=== PATIENT | female | born 1955 | race Caucasian/White ===

== ENCOUNTER → 2020-12-27 08:09 | Outpatient (CLI) | payer MEDICARE, SELFPAY ==
--- NOTE | ~2020-12-27 | CT_ITS ---
EXAMINATION: CT brain & sinus wo con DATE: 12/27/2020 08:48 INDICATION: Dizziness and giddiness. TECHNIQUE: Computed tomography (CT) of the head was performed without intravenous contrast. CT of the paranasal sinuses was performed without intravenous contrast. The mA was adjusted according to patie nt size. Iterative reconstruction technique was employed. The dose-length product was 674.51 mGy-cm. COMPARISON: None. FINDINGS: Head CT: There is no intracranial hemorrhage, acute infarction, or abnormal intracranial mass lesion. The vent ricles are normal in size. The orbits are normal. The mastoid air cells are normal. Sinuses CT: The frontal sinuses are small. There is mild mucosal thickening in the bilateral ethmoid sinuses. The sphenoid and maxillary sinuses are clear. The ostiomeatal units are patent. There is rightward devia tion of the nasal septum. IMPRESSION: 1. Normal brain. 2. Mild mucosal thickening in the ethmoid sinuses. 3. Rightward deviation of the the nasal septum. Reviewed, dictated and finalized at location A. ESS AND WELLNESS COORDINATOR
== END ==
PROVIDERS: PCP Family Medicine; Visit Provider Family Medicine
DX: R42 Dizziness and giddiness (principal); J32.4 Chronic pansinusitis
CPT/HCPCS: 70450; 70486

== ENCOUNTER 2021-04-30 16:57 | Emergency (ER) | payer MEDICARE, SELFPAY ==
[2021-04-30 18:01] VITALS: BP 145/82; PULSE 84; RESP 16; TEMP 36.4; O2SAT 99
--- NOTE | 2021-04-30 18:13 | ED.SKABFB ---
HPI - Skin/Abscess/Foreign Bdy General Chief complaint: Skin/Abscess/Foreign Body Stated complaint: POISON EZIO Time Seen by Provider: 04/30/21 18:14 Source: patient Limitations: no limitations History of Present Illness HPI narrative: Deirdre Torres is a 65 yo female with poison ezio that is coming here for IM Solu-Medrol for same because she is having left knee replacement on Wednesday. Her surgeon told her she needed to have IM medication for the poison ezio because she is not to be taking oral meds prior to surgery. Orthopedic surgeon is Dr Shine Larkin at [facility] Related Data Allergies Allergy/AdvReac Type Severity Reaction Status Date / Time oxycodone [From OxyContin] Allergy Mild nausea and Verified 03/31/21 10:00 vomiting morphine Allergy Unknown Nausea and Verified 03/31/21 10:00 Vomiting Review of Systems Review of Systems: Narrative: CONSTITUTIONAL: Denies fever, chills, sweats. EYES: Denies visual changes, redness, discharge. ENT: Denies rhinorrhea, congestion, sore throat, otalgia. CARDIOVASCULAR: Denies chest pain, palpitations, edema. RESPIRATORY: Denies dyspnea, wheezing, cough GASTROINTESTINAL: Denies abdominal pain, nausea, vomiting, diarrhea. GENITOURINARY: Denies dysuria, hematuria, abnormal discharge SKIN: Rash on bilateral arms and back NEUROLOGIC: Denies numbness, or focal weakness. PSYCHIATRIC: Denies anxiety or depression. [facility] Past Medical History Medical History Hyperlipidemia SVT (supraventricular tachycardia) Surgical History Surgical History H/O cervical discectomy C6-7 History of right knee joint replacement Family History Family History Father Diabetes mellitus Hypertension Sibling Hypertension Mother Lung cancer Other Brain cancer Social History Social History Social History: Second hand tobacco smoke exposure: No Alcohol intake: current Substance use: never Substance use type: does not use Gender identity (if verbalized by the patient): Female Comments At time of signature, I agree with nursing past medical, surgical, social and family history. There is no relevant family history pertinent to the presenting complaint. Blood pressure is elevated at this visit and should see her primary care physician this week Exam Narrative: Exam Narrative: GENERAL: This is a well-nourished, well-developed patient, in mild distress. HEAD: normocephalic, atraumatic. EYES: Sclera clear/white. Vision is grossly intact. EARS: External ears normal, . Hearing grossly intact. NOSE: External nose normal without nasal discharge, nares without redness, no rhinorrhea. THROAT: Mucous membranes moist, NECK: Neck supple, CARDIOVASCULAR: Regular rate and rhythm without murmurs, gallops, or rubs. RESPIRATORY: Clear to auscultation. Breath sounds equal bilaterally. No wheezes, rales, or rhonchi. GASTROINTESTINAL: Abdomen soft, SKIN: warm, intact with mild rash on bilateral arms, back, small area right thigh NEURO: awake, alert, and oriented to person, place and time. There were no obvious focal neurologic abnormalities. Steady gait EXTREMITIES: Normal range of motion. BACK: Nontender without deformity Course Course Emergency Course: Patient here for Solu-Medrol shot for poison ezio prior to surgery on Wednesday Solu-Medrol 80 mg given IM Return again tomorrow for same treatment as her surgeon said she needed to injections back to back Vital Signs Vital signs: Vital Signs Temperature 97.6 F 04/30/21 18:01 Pulse Rate 84 04/30/21 18:01 Respiratory Rate 16 04/30/21 18:01 Blood Pressure 145/82 H 04/30/21 18:01 Pulse Oximetry 99 04/30/21 18:01 Temperature 97.6 F 04/30/21 18:01 Pulse Rate 84 04/30/21 18:01 Respiratory
[2021-04-30] MEDS: methylPREDNISolone ACETATE 80 MG/ML VIAL IM (18:38)
== END 2021-04-30 18:22 | disposition home or self-care (01) ==
PROVIDERS: Emergency Provider Nurse Practitioner; PCP Family Medicine
DX: L23.7 Allergic contact dermatitis due to plants, except food (principal); E78.5 Hyperlipidemia, unspecified; Z96.651 Presence of right artificial knee joint
CPT/HCPCS: 96372; 99213; G0463; J1040

== ENCOUNTER 2022-02-05 09:12 | Outpatient (CLI) | payer MEDICARE, SELFPAY ==
--- NOTE | ~2022-02-05 | MM_ITS ---
EXAMINATION: MM screening carlie BI w esther HISTORY: Screening mammogram TECHNIQUE: Craniocaudal and mediolateral oblique 3-D tomosynthesis images were obtained and synthetic 2-D images were generated. CAD analysis was submitted and interpreted. COMPARISON: 01/25/2017, 06/03/2013 bilateral screening mammogram examinations BREAST PARENCHYMAL COMPOSITION: There are scattered areas of fibroglandular density. FINDINGS: Stable benign circumscribed intramammary lymph node in the upper outer quadrant left breast . There is no evidence of suspicious mass, calcification, or architectural distortion to suggest yris gnancy in either breast. There has been no suspicious interval change. IMPRESSION: 1. No mammographic evidence of malignancy. 2. Recommend routine screening mammography in one year. BI-RADS Category 2: Benign finding(s). Reviewed, dictated and finalized at location A.
== END 2022-02-05 09:13 | disposition home or self-care (01) ==
PROVIDERS: PCP Family Medicine; Visit Provider Obstetrics & Gynecology
DX: Z12.31 Encounter for screening mammogram for malignant neoplasm of breast (principal)
CPT/HCPCS: 77063; 77067

== ENCOUNTER 2023-04-23 12:58 | Outpatient (CLI) | payer MEDICARE, SELFPAY ==
--- NOTE | ~2023-04-23 | US_ITS ---
EXAMINATION: US thyroid DATE: 04/23/2023 13:53 INDICATION: Nontoxic single thyroid nodule. TECHNIQUE: Multiple ultrasound images of the thyroid were obtained. COMPARISON: None. FINDINGS: The right thyroid lobe measures 5.7 x 1.4 x 1.4 cm. The left thyroid lobe measures 4.7 x 0.9 x 1.8 c m. In the right thyroid lobe, there is a 6 mm mixed cystic and solid, hypoechoic, wider than tall no dule with smooth margin without echogenic foci (TI-RADS TR3). In the right thyroid lobe, there is a 7 mm predominantly solid, hypoechoic, wider than tall nodule with lobulated margin without echogenic f oci (TR4). In the left thyroid lobe, there is a 10 mm predominantly solid, hypoechoic, wider than rod l nodule with smooth margin without echogenic foci (TR4). IMPRESSION: 1. Small thyroid nodules. Thyroid ultrasound is recommended in one year. Reviewed, dictated and finalized at location A.
== END 2023-04-23 12:59 | disposition home or self-care (01) ==
PROVIDERS: PCP Family Medicine; Visit Provider Nurse Practitioner Gerontology
DX: E04.2 Nontoxic multinodular goiter (principal)
CPT/HCPCS: 76536

== ENCOUNTER 2024-04-03 07:43 | Outpatient (CLI) | payer MEDICARE, SELFPAY ==
--- NOTE | ~2024-04-03 | DEXA_ITS ---
Bone Density Report Name: SELIN MCFARLANE Age: 68 Sex: Female Ethnicity: White Date of : 1955 Indication: postmenopausal; screening for osteoporosis; height loss; Referring Provider: LULU JOHNSON Study: Bone densitometry was performed. Exam Date: April 03, 2024 Accession number: [id number] Bone Density: Region BMD T-score Z-score Classification AP Spine(L1-L4) 0.879 -1.5 0.5 Osteopenia Femoral Neck (Left) 0.717 -1.2 0.5 Osteopenia Total Hip (Left) 0.736 -1.7 -0.3 Osteopenia Femoral Neck (Right) 0.670 -1.6 0.1 Osteopenia Total Hip (Right) 0.707 -1.9 -0.5 Osteopenia Total Hip Mean 0.722 -1.8 -0.4 Osteopenia World Health Organization criteria for BMD impression classify patients as: Normal (T-score at or above -1.0), Osteopenia (T-score between -1.0 and -2.5), or Osteoporosis (T-score at or below -2.5). 10-year Fracture Risk(1): Major Osteoporotic Fracture 9.8% Hip Fracture 1.4% Reported Risk Factors: [place] (), Neck BMD=0.670, BMI=29.1 (1) FRAX(R) Version 3.08. Fracture probability calculated for an untreated patient. Fracture probability may be lower if the patient has received treatment. Clinical Information Provided by Patient: Has used the following medications: Vitamin D, Calcium Patient maximum height was 72 Menopause Age: 52 Drinks caffeinated beverages Onset of menses at age 16 Number of children 3 Impression: The patient has low bone mass, based on the Right Total Hip T-score. The patient has an estimated ten-year risk of hip fracture of 1.4% and an estimated ten-year risk of major fracture of 9.8%, based on the WHO FRAX algorithm. Discussion: BONE DENSITY IS LOW AT ONE OR MORE SKELETAL SITES. This patient's lowest T-score is low at one or more skeletal sites. It meets the World Health Organization's (WHO) criteria for ?low bone mass? (T-score between -1.0 and -2.5). The patient's 10-year risk of fracture as calculated by FRAX is less than the threshold where pharmacological therapy is recommended by the National Osteoporosis Foundation (NOF). However, all treatment decisions require clinical judgment and consideration of individual patient factors, including patient preferences, comorbidities, previous drug use, risk factors not captured in the FRAX model (e.g., frailty, falls, vitamin D deficiency, increased bone turnover, interval significant decline in bone density) and possible under or overestimation of fracture risk by FRAX. The patient should follow a healthful lifestyle (good nutrition with adequate calcium and vitamin D, and appropriate weight-bearing exercise). Follow-Up: Consider repeating this study in 2 to 3 years to reassess this patient's status, or sooner if there is some new clinical indication. Reported by: PALLAVI on 0
--- NOTE | ~2024-04-03 | MM_ITS ---
EXAMINATION: MM screening carlie BI w esther HISTORY: Screening TECHNIQUE: Craniocaudal and mediolateral oblique 3-D tomosynthesis images were obtained and synthetic 2-D images were generated. CAD analysis was submitted and interpreted. COMPARISON: Comparison to multiple prior studies sequentially, with oldest reviewed study dated 01/25. BREAST PARENCHYMAL COMPOSITION: There are scattered areas of fibroglandular density. FINDINGS: There is no evidence of suspicious mass, calcification, or architectural distortion to sugg est malignancy in either breast. There has been no suspicious interval change. IMPRESSION: 1. No mammographic evidence of malignancy. 2. Recommend routine screening mammography in one year. BI-RADS Category 1: Negative Reviewed, dictated and finalized at location A.
== END 2024-04-03 07:44 | disposition home or self-care (01) ==
LOC: ANHIMG 07:46
PROVIDERS: PCP Family Medicine; Visit Provider Family Medicine
DX: Z12.31 Encounter for screening mammogram for malignant neoplasm of breast (principal); M85.89 Other specified disorders of bone density and structure, multiple sites; Z78.0 Asymptomatic menopausal state; Z13.820 Encounter for screening for osteoporosis
CPT/HCPCS: 77063; 77067; 77080

== ENCOUNTER 2024-12-01 09:08 | Outpatient (CLI) | payer MEDICARE, SELFPAY ==
--- NOTE | ~2024-12-01 | US_ITS ---
EXAMINATION: US thyroid DATE: 12/01/2024 09:55 INDICATION: Nontoxic single thyroid nodule. TECHNIQUE: Multiple ultrasound images of the thyroid were obtained. COMPARISON: Thyroid ultrasound 04/23/2023 FINDINGS: The right thyroid lobe measures 4.8 x 1.2 x 1.3 cm. The left thyroid lobe measures 5.1 x 1.8 x 1.1 c m. In the left thyroid lobe, there is a 9 mm mixed solid and cystic, isoechoic, wider than tall nodu le with smooth margin without echogenic foci (TI-RADS TR2). In the right thyroid lobe, there is a 7 m m almost entirely solid, hypoechoic, wider than tall nodule with smooth margin without echogenic foci (TR4). In the right thyroid lobe, there is a 7 mm mixed cystic and solid, hypoechoic, wider than rod l nodule with smooth margin and peripheral calcification (TR4). IMPRESSION: 1. Small thyroid nodules, likely not clinically significant. No follow-up is needed. Reviewed, dictated and finalized at location A. UITWARE BRUSHER IMPRESSION: 1. Small thyroid nodules, likely not clinically significant. No follow-up is ne eded.
--- OUTSIDE RECORDS SUMMARY | 2024-12-07 05:53 | XMS_ITS | Patient Health Summary ---
Author Organization [facility] Address [address] [place] [address] Care Team Providers Care Putter In Name Role Phone Unavailable Primary Care Provider Unavailabl e Note from [facility],non-owned Affiliates and Associated Physician Practices is amultiple site organization consisting of ambulatory clinics and hospital sitesin [place], [place], [place] and [place]. This disclosure is being madepursuant to the Care Everywhere program and may not contain all information available regarding this patient. Last updated 18.[facility] Social History Tobacco Use Types Packs/Day Years Used Date Smoking Tobacco: Never Assessed Sex and Gender Information Value Date Recorded Sex Assigned at Not on file Gender Identity Not on file Sexual Orientation Not on file Procedures * DERMATOPATHOLOGY(Performed 03/11/2023) * DERMATOPATHOLOGY(Performed 01/28/2017) Results * DERMATOPATHOLOGY (03/11/2023 12:00 AM CDT) Only the most recent of2 resultswithin the time period is included. Case Report Dermatopathology Report ? Case: [id number] ? Authorizing Provider: ??Justin Dia MD ?Collected: ? 03/11/2023 12:00 AM ? Ordering Location: ? [facility] ?Received: ?03/11/2023 04:55 PM ? Pathologist: ? Linda Christensen MD ? Specimen: ?Skin, posterior neck ? 3 12:18 PM [facility] Final Diagnosis Specimen A. SKIN, posterior neck: EPIDERMOID CYST (L72.0) PRESENT AT MARGIN 3 12:18 PM [facility] Clinical History Cyst. Path# [id number] 3 12:18 PM [facility] Gross Description Specimen A: Received is one formalin filled container labeled with the patient's name and designated posterior neck. The specimen consists of two (2) pieces of a shave biopsy measuring [id number], 8x9x6 mm. Jar 0+. 3 12:18 PM [facility] Microscopic Description Specimen A. SKIN, posterior neck: Within the dermis, there is a space lined by epithelium that resembles normal epidermis and the infundibular portion of the hair follicle. This lesion is present at the margin of the specimen. 3 12:18 PM [facility] Disclaimer An external and internal positive and negative controls are appropriate for the histochemical, immunohistochemical and immunofluorescence stain(s) in this case (if any), except where stated explicitly. The performance characteristics of the stain(s) cited in this report were developed and its performance characteristic determined by the Dermatopathology Laboratory at [facility], directed by Dr. Sarah Sales. These tests need not be, and therefore are not, approved by the [place] Food and Drug Administration. The tests are used for clinical purposes. Billing Codes Specimen Charges Stain Charges 64338 1 3 12:18 PM CDT DERMATOPATHOLOGY LABORATORY Embedded Images 3 12:18 PM CDT DERMATOPATHOLOGY LABORATORY Pathology/Cytolog y TISSUE SPECIMEN FROM SKIN / Unknown 03/11/2023 03/11/2023 4:55 PM CDT Justin Dia MD LAB - PATHOLOGY/CYTO LOGY ORDERABLES DERMATOPATHOLOGY LABORATORY [facility] - Department of Dermatology [facility] [address] [place] [address], [address] [phone]
--- OUTSIDE RECORDS SUMMARY | 2024-12-07 05:53 | XMS_ITS | Encounter Summary ---
Author Organization [facility] Address [address] [place] [address] Care Team Providers Care Eye Glass Frame Polisher Name Role Phone Leroy Hu MD Primary Care Provider [phone] Rain Lazaro MD Primary Care Provider Encounter Details Date Type Department Care Team (Late st Contact Info) Description 12/18/2016 Orders Only [facility] ProviderMasha MD [address] [place], [place] [id number] Social History Tobacco Use Types Packs/Day Years Used Date Smoking Tobacco: Never Alcohol Use Standard Drinks/Week Comments Yes 0 (1 standard drink = 0.6 oz pur e alcohol) Comments Unknown Sex and Gender Information Value Date Recorded Sex Assigned at Not on file Legal Sex Female 10:31 AM ERP BUSINESS ANALYST Gender Identity Female 04/14/2021 1:28 PM CDT Sexual Orientation Not on file documented as of this encounter Plan of Treatment Not on file documented as of this encounter Procedures Procedure Name Priority Date/Time Associated Diagnosis Comments CARDIOLOGY REPORT 12/18/2016 documented in this encounter Results * CARDIOLOGY REPORT (12/18/2016) Anatomical Region Laterality Modality Other Narrative 12/18/2016 Ordered by an unspecified provider. Historical Provider [facility] JENNIFER FAIRBANKS Final Result documented in this encounter Visit Diagnoses Not on filedocumented in this encounter Care Teams Eye Glass Frame Polisher Relationship Specialty Start Date End Date Leroy Hu MD [address] [place] [address] PCP - General 02/04/15 04/20/21 Rain Lazaro MD [address] [facility] [address] [place] [address] PCP - General Family Medicine 04/21/21 documented as of this encounter
--- OUTSIDE RECORDS SUMMARY | 2024-12-07 05:53 | XMS_ITS | Referral Summary ---
Author Organization [facility] Address [address] [place] [address] Care Team Providers Care Photo Manager Name Role Phone Unavailable Primary Care Provider Unavailabl e Source Comments [facility],non-owned Affiliates and Associated Physician Practices is amultiple site organization consisting of ambulatory clinics and hospital sitesin [place], [place], [place] and [place]. This disclosure is being madepursuant to the Care Everywhere program and may not contain all information available regarding this patient. Last updated 18.[facility] Social History Tobacco Use Types Packs/Day Years Used Date Smoking Tobacco: Never Assessed Sex and Gender Information Value Date Recorded Sex Assigned at Not on file Gender Identity Not on file Sexual Orientation Not on file Plan of Treatment Not on file
--- OUTSIDE RECORDS SUMMARY | 2024-12-07 05:53 | XMS_ITS | Clinical Summary ---
Author Organization [facility] Address [address] [place] [address] Care Team Providers Care Systems Specialist Name Role Phone Unavailable Primary Care Provider Unavailabl e Source Comments [facility],non-owned Affiliates and Associated Physician Practices is amultiple site organization consisting of ambulatory clinics and hospital sitesin [place], [place], [place] and [place]. This disclosure is being madepursuant to the Care Everywhere program and may not contain all information available regarding this patient. Last updated 18.[facility] [employer] Social History Tobacco Use Types Packs/Day Years Used Date Smoking Tobacco: Never Assessed Sex and Gender Information Value Date Recorded Sex Assigned at Not on file Gender Identity Not on file Sexual Orientation Not on file Plan of Treatment Health Maintenance Due Date Last Done Comments BONE DENSITY TESTING 1955 COLOGUARD (AGES 45-75) - COL ON CA SCREENING 1955 COLON MONITORING 1955 COLONOSCOPY - COLON CA SCREENING 1955 CT COLONOGRAPHY - COLON CA SCREENING 1955 Colorectal Cancer Screening 1955 FIT - COLON CA SCREENING 1955 FLEX SIG - COLON CA SCREENING 1955 LIPID TESTING 1955 MAMMOGRAM 1955 MEDICARE AWV ? 12 MONTHS 1955 HEPATITIS C SCREENING 05/03/1973 DTAP/TDAP/TD VACCINES (1 - Tdap) 1974 PNEUMOCOCCAL VACCINE 50+ (1 of 1 - PCV) 2005 ZOSTER VACCINE (1 of 2) 2005 COVID-19 VACCINE (1 - 2023-2 5 season) 2024 INFLUENZA VACCINE (#1) 2024 DEPRESSION SCREENING 11/15/2024 Respiratory Syncytial Virus (RSV) Vaccine Pt: or over 60 yrs (1 - 1-dose 75+ series) 2030 HEPATITIS B VACCINE Aged Out No longe r eligible based on patient's age to complete this topic HIB VACCINE Aged Out No longer eligi ble based on patient's age to complete this topic HPV VACCINE Aged Out No longer eligi ble based on patient's age to complete this topic MENINGOCOCCAL (Group B) VACCINE Aged Out No longer eligible based on patient's age to complete this topic MENINGOCOCCAL VACCINE Aged Out No jeri jon eligible based on patient's age to complete this topic
--- OUTSIDE RECORDS SUMMARY | 2024-12-07 05:53 | XMS_ITS | Clinical Summary ---
Author Organization [facility] Address [address] [place] [address] Care Team Providers Care Warning Analyst Name Role Phone Rain Lazaro MD Primary Care Provider Allergies Active Allergy Reactions Criticality Noted Date Comments Morphine Nausea only,Vomiting Low Reaction: NAUSEA, VOMITING, , Medications rosuvastatin (CRESTOR) 5 mg tablet Take 5 mg by mouth daily Active coenzyme Q10 200 mg capsule 11/20/2021 Active fluconazole (DIFLUCAN) 150 mg tablet Take 150 mg by mouth daily 10/26/2022 Active Active Problems Problem Noted Date Diagnosed Date Paroxysmal atrial fibrillation (CMS/HCC) 023 Assessment & Plan (12/02/2023 4:55 PM PUMP HOUSE TECHNICIAN): Very brief atrial fibrillation (less than 1%, longest episode 4 hours), completely asymptomatic. We will continue to observe and manage expectantly. Chads Vasc score is 2. At this level of risk, anticoagulation is not compulsory. The patient will follow-up with me in 12 months for an office visit and twelve- lead ECG. Assessment & Plan (12/06/2022 1:36 PM PUMP HOUSE TECHNICIAN): Minimal atrial arrhythmia seen on the patient's device. Chads Vasc score is low enough where anticoagulation does not need to be entertained (chads Vasc score 2). The patient will follow-up with me in 12 months for an office visit and twelve- lead ECG. Anticoagulation management encounter 11/24/2020 Assessment & Plan (11/24/2020 1:55 PM PUMP HOUSE TECHNICIAN): The patient has a [id number] score of 2 (annualized risk of stroke 2.2%). Anticoagulation is not necessary at this time, but we will continue to follow her for changes in her risk score. The patient will follow-up with me in 12 months for an office visit and twelve- lead ECG. SVT (supraventricular tachycardia) 03/31/2014 Overview (02/19/2017): SVT (supraventricular tachycardia) Assessment & Plan (12/01/2021 11:23 AM PUMP HOUSE TECHNICIAN): Very brief recurrence has been observed (longest episode 3 hours), all asymptomatic. For now, we will continue observation. Assessment & Plan (11/24/2020 1:54 PM PUMP HOUSE TECHNICIAN): Doing well, with an overall continuing low burden of atrial arrhythmia. Her device reported an overall burden of less than 0.3% of atrial tachycardia/atrial fibrillation, all of which was asymptomatic. Assessment & Plan (11/13/2019 4:25 PM PUMP HOUSE TECHNICIAN): She is doing well, with an overall very low burden of atrial arrhythmia. Review of the device electrogram suggests presence of atrial fibrillation, though no episodes longer than 3 hours were noted. We will continue to follow for progression. I suspect that her AV block rendered her asymptomatic during these episodes. Assessment & Plan (11/15/2018 12:01 PM PUMP HOUSE TECHNICIAN): The patient has a history of atrial tachycardia. She continues to do well, and is without symptoms. Her device interrogation is only demonstrated minimal atrial arrhythmia. Assessment & Plan (10/27/2017 12:58 PM PUMP HOUSE TECHNICIAN): The patient is doing well. She has only experienced a limited amount atrial tachycardia symptomatic. Cardiac pacemaker in situ 11/30/2011 Overview (07/22/2017): Medtronic Adapta DDD pacemaker implanted for CHB on 11/30/2011. [place] [facility] Assessment & Plan (12/06/2022 1:36 PM PUMP HOUSE TECHNICIAN): Status post pacemaker for complete heart block, post ablation of a para-Hisian tachycardia. The patient's device was interrogated and found to be functioning appropriately. No substantial changes to programming were made. The patient is enrolled in the [facility], and we will continue to follow with remote monitoring when possible, and in-office device checks when necessary. Assessment & Plan (12/01/2021 11:24 AM PUMP HOUSE TECHNICIAN): The patient's device was interrogated and found to be functioning appropriately. No substantial changes to programming were made. The patient is enrolled in the [facility], and we will continue to follow with remote monitoring when possible, and in-office device checks when necessary. The patient will follow-up with me in 12 months for an office visit and twelve- lead ECG. Assessment & Plan (11/24/2020 1:53 PM PUMP HOUSE TECHNICIAN): The patient's device was interrogated and found to be functioning appropriately. No substantial changes to programming were made. The patient is enrolled in the [facility], and we will continue to follow with remote monitoring when possible, and in-office device checks when necessary. Assessment & Plan (11/13/2019 4:25 PM PUMP HOUSE TECHNICIAN): The patient's device was interrogated and found to be functioning appropriately. No substantial changes to programming were made. The patient is enrolled in the [facility], and we will continue to follow with remote monitoring when possible, and in-office device checks when necessary. The patient will follow-up with me in 12 months for an office visit and twelve- lead ECG. Assessment & Plan (11/15/2018 12:04 PM PUMP HOUSE TECHNICIAN): The patient's device was interrogated and found to be functioning appropriately. No substantial changes to programming were made. The patient is enrolled in the [facility], and we will continue to follow with remote monitoring when possible, and in-office device checks when necessary. The patient will follow-up with me in 12 months for an office visit and twelve- lead ECG. Assessment & Plan (10/27/2017 12:58 PM PUMP HOUSE TECHNICIAN): The patient's device was interrogated and found to be functioning appropriately. No substantial changes to programming were made. The patient is enrolled in the [facility], and we will continue to follow with remote monitoring when possible, and in-office device checks when necessary. I asked the patient to have an echocardiogram performed given her high density single site RV pacing. The patient will follow-up with me in 12 months for an office visit and twelve- lead ECG. Complete heart block (CMS/HCC) 11/30/2011 Overview (02/19/2017): CHB (complete heart block) Assessment & Plan (12/02/2023 4:54 PM PUMP HOUSE TECHNICIAN): Complete heart block, status post dual-chamber pacemaker. The patient's device was interrogated and found to be functioning appropriately. No substantial changes to programming were made. The patient is enrolled in the [facility], and we will continue to follow with remote monitoring when possible, and in-office device checks when necessary. Surgical History Surgery Date Site/Laterality Comments OTHER SURGICAL HISTORY : C5 disc replacement INSERT / REPLACE / REMOVE PACEMAKER Medical History Medical History Date Comments Arrhythmia CHF (congestive heart failure) (CMS/HCC) ([facility]) Hyperlipidemia Syncope Family History Medical History Relation Name Comments Heart attack Father 2 Myocardial Infa rction; Relation Name Status Comments Father 1 Alive Father 2 Social History Tobacco Use Types Packs/Day Years Used Date Smoking Tobacco: Never Smokeless Tobacco: Never Alcohol Use Standard Drinks/Week Comments Yes 0 (1 standard drink = 0.6 oz pur e alcohol) Comments Unknown Sex and Gender Information Value Date Recorded Sex Assigned at Not on file Legal Sex Female 10:31 AM PUMP HOUSE TECHNICIAN Gender Identity Female 04/14/2021 1:28 PM CDT Sexual Orientation Not on file Obstetrics History Last Filed Vital Signs Vital Sign Reading Time Taken Comments Blood Pressure 110/70 12/03/2022 9:36 AM PUMP HOUSE TECHNICIAN Pulse 70 12/03/2022 9:36 AM PUMP HOUSE TECHNICIAN Temperature - - Respiratory Rate 18 11/27/2021 9:33 AM PUMP HOUSE TECHNICIAN Oxygen Saturation 98% 10/21/2017 10:50 AM PUMP HOUSE TECHNICIAN Inhaled Oxygen Concentration - - Weight 90.1 kg (198 lb 9.6 oz) 12/03/2022 9:36 A M PUMP HOUSE TECHNICIAN Height 182 cm (5' 11.65 ) 12/02/2023 11:14 AM CS T Body Mass Index 26.94 12/03/2022 9:36 AM PUMP HOUSE TECHNICIAN Plan of Treatment Health Maintenance Due Date Last Done Comments Breast Cancer Screening-Mammogram 1955 Colon Cancer Screening-Colonoscopy 1955 Depression Screening 1955 Fall Risk Assessment 1955 Hepatitis C Screening 1955 Osteoporosis Screening-Bone Density Scan 1955 DTaP/Tdap/Td Vaccine (1 - Tdap) 1966 Hepatitis B Screening 1973 Zoster Vaccine (1 of 2) 2005 Pneumococcal vaccine 65+ (1 of 1 - PCV) 2020 Well Visit 65+ 2020 Covid-19 Vaccine ( - 2023- season) 2024 10/21/2021, 02/04/2021, 12/19/2020 Influenza Vaccine (#1) 2024 [place] [address] [place] [address] [employer] MEDICARE AETNA Care Teams Warning Analyst Relationship Specialty Start Date End Date Rain Lazaro MD [address] [facility] [address] [place] [address] PCP - General Family Medicine 04/21/21
--- OUTSIDE RECORDS SUMMARY | 2024-12-07 05:53 | XMS_ITS | Referral Summary ---
Author Organization [facility] C Address [address] [place] [address] Care Team Providers Care Ticket Manager Name Role Phone Rain Lazaro MD Primary [...] 023 Assessment & Plan (12/02/2023 4:55 PM ACCESSORIES REPAIRER): Very brief atrial fibrillation (less than 1%, longest episode 4 hours), completely asymptomatic. We will continue to observe and manage expectantly. Chads Vasc score is 2. At this level of risk, anticoagulation is not compulsory. The patient will follow-up with me in 12 months for an office visit and twelve- lead ECG. Assessment & Plan (12/06/2022 1:36 PM ACCESSORIES REPAIRER): Minimal atrial arrhythmia seen on the patient's device. Chads Vasc score is low enough where anticoagulation does not need to be entertained (chads Vasc score 2). The patient will follow-up with me in 12 months for an office visit and twelve- lead ECG. Anticoagulation management encounter 11/24/2020 Assessment & Plan (11/24/2020 1:55 PM ACCESSORIES REPAIRER): The patient has a [id number] score of 2 (annualized risk of stroke 2.2%). Anticoagulation is not necessary at this time, but we will continue to follow her for changes in her risk score. The patient will follow-up with me in 12 months for an office visit and twelve- lead ECG. SVT (supraventricular tachycardia) 03/31/2014 Overview (02/19/2017): SVT (supraventricular tachycardia) Assessment & Plan (12/01/2021 11:23 AM ACCESSORIES REPAIRER): Very brief recurrence has been observed (longest episode 3 hours), all asymptomatic. For now, we will continue observation. Assessment & Plan (11/24/2020 1:54 PM ACCESSORIES REPAIRER): Doing well, with an overall continuing low burden of atrial arrhythmia. Her device reported an overall burden of less than 0.3% of atrial tachycardia/atrial fibrillation, all of which was asymptomatic. Assessment & Plan (11/13/2019 4:25 PM ACCESSORIES REPAIRER): She is doing well, with an overall very low burden of atrial arrhythmia. Review of the device electrogram suggests presence of atrial fibrillation, though no episodes longer than 3 hours were noted. We will continue to follow for progression. I suspect that her AV block rendered her asymptomatic during these episodes. Assessment & Plan (11/15/2018 12:01 PM ACCESSORIES REPAIRER): The patient has a history of atrial tachycardia. She continues to do well, and is without symptoms. Her device interrogation is only demonstrated minimal atrial arrhythmia. Assessment & Plan (10/27/2017 12:58 PM ACCESSORIES REPAIRER): The patient is doing well. She has only experienced a limited amount atrial tachycardia symptomatic. Cardiac pacemaker in situ 11/30/2011 Overview (07/22/2017): Medtronic Adapta DDD pacemaker implanted for CHB on 11/30/2011. [place] [facility] Assessment & Plan (12/06/2022 1:36 PM ACCESSORIES REPAIRER): Status post pacemaker for complete heart block, [...] necessary. Assessment & Plan (12/01/2021 11:24 AM ACCESSORIES REPAIRER): The patient's device was interrogated and found [...] ECG. Assessment & Plan (11/24/2020 1:53 PM ACCESSORIES REPAIRER): The patient's device was interrogated and found to be functioning appropriately. No substantial changes to programming were made. The patient is enrolled in the [facility], and we will continue to follow with remote monitoring when possible, and in-office device checks when necessary. Assessment & Plan (11/13/2019 4:25 PM ACCESSORIES REPAIRER): The patient's device was interrogated and found [...] ECG. Assessment & Plan (11/15/2018 12:04 PM ACCESSORIES REPAIRER): The patient's device was interrogated and found [...] ECG. Assessment & Plan (10/27/2017 12:58 PM ACCESSORIES REPAIRER): The patient's device was interrogated and found [...] block) Assessment & Plan (12/02/2023 4:54 PM ACCESSORIES REPAIRER): Complete heart block, status post dual-chamber pacemaker. The patient's device was interrogated and found to be functioning appropriately. No substantial changes to programming were made. The patient is enrolled in the [facility], and we will continue to follow with remote monitoring when possible, and in-office device checks when necessary. Social History Tobacco Use Types Packs/Day Years Used Date Smoking Tobacco: Never Smokeless Tobacco: Never Alcohol Use Standard Drinks/Week Comments Yes 0 (1 standard drink = 0.6 oz pur e alcohol) Comments Unknown Sex and Gender Information Value Date Recorded Sex Assigned at Not on file Legal Sex Female 10:31 AM ACCESSORIES REPAIRER Gender Identity Female 04/14/2021 1:28 PM CDT Sexual Orientation Not on file Last Filed Vital Signs Vital Sign Reading Time Taken Comments Blood Pressure 110/70 12/03/2022 9:36 AM ACCESSORIES REPAIRER Pulse 70 12/03/2022 9:36 AM ACCESSORIES REPAIRER Temperature - - Respiratory Rate 18 11/27/2021 9:33 AM ACCESSORIES REPAIRER Oxygen Saturation 98% 10/21/2017 10:50 AM ACCESSORIES REPAIRER Inhaled Oxygen Concentration - - Weight 90.1 kg (198 lb 9.6 oz) 12/03/2022 9:36 A M ACCESSORIES REPAIRER Height 182 cm (5' 11.65 ) 12/02/2023 11:14 AM CS T Body Mass Index 26.94 12/03/2022 9:36 AM ACCESSORIES REPAIRER Plan of Treatment Not on file Insurance MEDICARE [facility] MEDICARE AET Care Teams Ticket Manager Relationship Specialty Start Date End Date Rain Lazaro MD [address] [facility] [address] [place] [address] PCP - General Family Medicine 04/21/21
--- OUTSIDE RECORDS SUMMARY | 2024-12-07 05:53 | XMS_ITS | Clinical Summary ---
Author Organization [facility] Address [address] [place] [address]. [place], [place] [id number] [place] [address] Care Team Providers Care Furnace Operator Oil Or Gas Name Role Phone Rain Lazaro MD Primary Care Provider [phone]- [phone] Social History Tobacco Use Types Packs/Day Years Used Date Smoking Tobacco: Never Assessed Comments Unknown Sex and Gender Information Value Date Recorded Sex Assigned at Not on file Legal Sex Female 1:48 PM TRACTOR OPERATOR HELPER Gender Identity Not on file Sexual Orientation Not on file Plan of Treatment Health Maintenance Due Date Last Done Comments Colorectal Cancer Screening Colonoscopy (10 Years) 1955 Hepatitis C 1973 DTaP, Tdap and Td Vaccines ( 1 - Tdap) 1974 Mammogram Screening 1995 Zoster Vaccines (1 of 2) 2005 Annual Medicare Wellness Visit 2020 Dexa Scan (General) 2020 Pneumococcal Vaccine: 65+ Years (1 of 1 - PCV) 2020 COVID-19 Vaccine (4 - 2023-2 5 season) 2024 10/21/2021, 02/04/2021, 12/19/2020 Influenza Adult (#1) 2024 RSV Immunization or 60+ Years (1 - 1-dose 75+ series) 2030 Meningococcal Vaccine Aged Out No jeri jon eligible based on patient's age to complete this topic RSV Immunizations Under 20 Months Aged Out No longer eligible b ased on patient's age to complete this topic Insurance MEDICARE AETNA Care Teams Furnace Operator Oil Or Gas Relationship Specialty Start Date End Date Rain Lazaro MD [address] [facility] [address] [place] [address] [place] [address] PCP - General FAMILY PRACTICE 01/20/24
--- OUTSIDE RECORDS SUMMARY | 2024-12-07 05:53 | XMS_ITS | Encounter Summary ---
Author Organization [facility] Address [address] [place] [address] Care Team Providers Care Hub Lead Name Role Phone Unavailable Primary Care Provider Unavailabl e Encounter Details Date Type Department Care Team (Late st Contact Info) Description 03/11/2023 Lab Requisition [facility] [address] [place] [address] Justin Dia MD [address] [place] [address] Social History Tobacco Use Types Packs/Day Years Used Date Smoking Tobacco: Never Assessed Sex and Gender Information Value Date Recorded Sex Assigned at Not on file Gender Identity Not on file Sexual Orientation Not on file documented as of this encounter Plan of Treatment Not on file documented as of this encounter Procedures Procedure Name Priority Date/Time Associated Diagnosis Comments DERMATOPATHOLOGY Routine 03/11/2023 12:0 0 AM CDT documented in this encounter Results * DERMATOPATHOLOGY (03/11/2023 12:00 AM CDT) Case Report Dermatopathology Report ? Case: [id number] ? Authorizing Provider: ??Justin Dia MD ?Collected: ? 03/11/2023 12:00 AM ? Ordering Location: ? [facility] ?Received: ?03/11/2023 04:55 PM ? Pathologist: ? Linda Christensen MD ? Specimen: ?Skin, posterior neck ? 3 12:18 PM T DERMATOPATHOLOGY LABORATORY Final Diagnosis Specimen A. SKIN, posterior neck: EPIDERMOID CYST (L72.0) PRESENT AT MARGIN 3 12:18 PM T DERMATOPATHOLOGY LABORATORY Clinical History Cyst. Path# [id number] 3 12:18 PM T DERMATOPATHOLOGY LABORATORY Gross Description Specimen A: Received is one formalin filled container labeled with the patient's name and designated posterior neck. The specimen consists of two (2) pieces of a shave biopsy measuring [id number], 8x9x6 mm. Jar 0+. 3 12:18 PM CDT DERMATOPATHOLOGY LABORATORY Microscopic Description Specimen A. SKIN, posterior neck: Within the dermis, there is a space lined by epithelium that resembles normal epidermis and the infundibular portion of the hair follicle. This lesion is present at the margin of the specimen. 3 12:18 PM T DERMATOPATHOLOGY LABORATORY Disclaimer An external and internal positive and negative controls are appropriate for the histochemical, immunohistochemical and immunofluorescence stain(s) in this case (if any), except where stated explicitly. The performance characteristics of the stain(s) cited in this report were developed and its performance characteristic determined by the Dermatopathology Laboratory at [facility], directed by Dr. Sarah Sales. These tests need not be, and therefore are not, approved by the [place] Food and Drug Administration. The tests are used for clinical purposes. Billing Codes Specimen Charges Stain Charges 54604 1 3 12:18 PM CDT DERMATOPATHOLOGY LABORATORY Embedded Images 3 12:18 PM CDT DERMATOPATHOLOGY LABORATORY Pathology/Cytolog y TISSUE SPECIMEN FROM SKIN / Unknown 03/11/2023 03/11/2023 4:55 PM CDT Justin Dia MD LAB - PATHOLOGY/CYTO LOGY ORDERABLES DERMATOPATHOLOGY LABORATORY [facility] - Department of Dermatology [facility] [address] [place] [address], [address] [phone] documented in this encounter Visit Diagnoses Not on filedocumented in this encounter
== END 2024-12-01 09:09 | disposition home or self-care (01) ==
LOC: ANHIMG 09:10
PROVIDERS: PCP Family Medicine; Visit Provider Student in an Organized Health Care Education/Training Program
DX: E04.2 Nontoxic multinodular goiter (principal)
CPT/HCPCS: 76536